=== PATIENT | male | born 1975 | race Caucasian/White ===

== ENCOUNTER 2023-06-30 11:54 | Emergency (ER) | payer OTHER, SELFPAY ==
[2023-06-30 12:01] VITALS: BP 141/82; PULSE 57; RESP 16; TEMP 36.6; O2SAT 97; BMI 30.1
--- NOTE | 2023-06-30 12:36 | CT_ITS ---
Patient: TEDDY LOPEZ Facility:?[facility] Patient ID:?[id number] Site Patient ID:?[id number]. Site :?[id number] Study:?CT-Head WITHOUT-06/30/2023 12:54:55 PM Ordering Physician:?DR. LANIER Final Report: Indication: Left facial and jaw pain, sweats and headache Technique: Volumetric multidetector CT images of the head were obtained without the administration of low osmolar intravenous contrast. Comparison: None available Findings: There is no intra-axial or extra-axial fluid collection. There is no mass effect or midline shift. The ventricles and sulci are normal in size and position for age. The brain parenchyma is grossly preserved in attenuation and walsh-white differentiation. The orbits and their contents are grossly within normal limits. The bony calvarium is grossly intact. The paranasal sinuses are clear. The mastoid air cells are well aerated. Impression: No acute intracranial abnormality. Please note that all CT scans at this facility use dose modulation, iterative reconstruction, and/or weight-based dosing when appropriate to reduce radiation dose to as low as reasonably achievable. Dictated by Demond Hinds MD @ 06/30/2023 12:59:45 PM Signed by:?Demond Hinds MD @06/30/2023 12:59:45 PM (Electronic Signature)
[2023-06-30 13:03] LABS: Lactate Sepsis w/Reflex* 1.2 mmol/L (0.5-1.9)
[2023-06-30 13:07] LABS: Basophils Absolute Auto 0.02 K/uL (0.00-0.30); Basophils Percent Auto 0.3 % (0.0-3.0); Eosinophils Absolute Auto 0.03 K/uL (0.00-0.50); Eosinophils Percent Auto 0.5 % (0.0-7.0); Hematocrit 47.4 % (37.0-53.0); Hemoglobin* 16.5 gm/dL (13.5-17.5); Immature Granulocytes Abs Auto 0.01 K/uL (0.00-0.30); Immature Granulocytes Pct Auto 0.2 %; Lymphocytes Percent Auto 14.8 % (20-44); Mean Corpuscular HGB Conc 35 gm/dL (32-36); Mean Corpuscular Hemoglobin 31 pg (26-34); Mean Corpuscular Volume 89 fL (80-100); Monocytes Percent Auto 8.5 % (0.0-11.0); Neutrophils Percent Auto 75.7 % (42.0-72.0); Platelet Count* 204 K/uL (140-440); RDW Coefficient of Variation % 12.9 % (11.5-15.5); Red Blood Count 5.31 m/uL (4.30-5.90); Slide Review Reflex No; White Blood Count* 6.22 K/uL (4.50-11.00)
[2023-06-30 13:22] LABS: Chloride* 103 mmol/L (96-114); Potassium* 4.1 mmol/L (3.6-5.1); Sodium* 140 mmol/L (135-149)
[2023-06-30 13:25] LABS: Creatinine* 0.8 mg/dL (0.5-1.5); Est. Creatinine Clearance* 115.33; Estimated Glomerular Filt Rate 108 ml/min
[2023-06-30 13:26] LABS: Anion Gap 11 mEq/L (7-15); Blood Urea Nitrogen* 14 mg/dL (5-24); Calcium* 9.7 mg/dL (8.4-10.6); Carbon Dioxide* 26 mmol/L (20-32); Glucose* 105 mg/dL (60-115); Magnesium* 2.2 mg/dL (1.5-2.6)
[2023-06-30 13:31] LABS: C Reactive Protein* < 0.5 mg/dL (0.5-1.0)
--- NOTE | 2023-06-30 14:09 | ED.GENADULT ---
HPI - General Adult General Date Seen: 06/30/23 Chief complaint: Unspecified Complaint, Adult Stated complaint: confusion,body temp irregulation Time Seen by Provider: 06/30/23 12:08 Source: patient and family Mode of arrival: ambulatory Limitations: no limitations History of Present Illness HPI narrative: Patient is a 47-year-old male here with his for evaluation of few different symptoms. For the past several weeks, he says he has had some pain in the left jaw/cheek area. This is been constant but waxes and wanes in intensity. He had attributed it to a tooth, but saw dentist today and says that they did not find any problems. He has not had any swelling, rashes, redness or other changes to the face. He does say that he was having problems for a while with clenching his jaw related to 1 of his psychiatric medications which has since been discontinued. He notes he has not been sleeping well the past few days, which his thought was due to anxiety over new job which he started yesterday. 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 He says his heart was racing yesterday and the hot warehouse, and he thought he may be ?heat stroked a little bit. He has had some night sweats. He has not had unexpected weight loss. He also feels that his temperature regulation is off, he has not documented a fever but feels that he is having significant variability between feeling hot and cold. He also notes that he has been emotionally labile. He does have a history of anxiety, depression, PTSD, question bipolar disorder, was transferred to inpatient psych a year ago, medications adjusted. He says his psychiatrist has left the practice and so he does not have anybody currently managing medications, but does continue to take his current medications and feels that overall his symptoms have been well controlled. Related Data Home Medications Medication Instructions Recorded Confirmed escitalopram oxalate 20 mg tablet 20 mg PO DAILY 06/30/23 06/30/23 lurasidone 20 mg tablet 20 mg PO DAILY 06/30/23 06/30/23 Allergies Allergy/AdvReac Type Severity Reaction Status Date / Time No Known Drug Allergies Allergy Verified 07/06/22 08:57 Review of Systems Status of ROS: Reports: 10 or more systems reviewed and unremarkable except as noted in History and below [facility] Social History Smoking Status: Unknown if ever smoked How often do you have a drink containing alcohol: 4 or more times a week How often do you have six or more drinks on one occasion: Weekly AUDIT-C Alcohol total score: 7 Non-prescribed substance use: marijuana (any form) Exam Narrative: Exam Narrative: Vital signs as noted above. In general, an alert, nontoxic middle-aged male. Head: Normocephalic, atraumatic. Eyes: Pupils are equal reactive. Extraocular movements are full. Conjunctivae are normal. ENT: Mucous membranes are moist. Throat is normal. Dentition is intact, there is no intraoral swelling or tenderness. He does have some tenderness over the TMJ on the left. There is no erythema, no edema, no rash. Neck: Supple without lymphadenopathy. No other masses, no stridor. Heart: Regular rate and rhythm. No murmur or rub. Lungs: Clear bilaterally. No increased work of breathing, crackles or wheezes. Abdomen: Soft and nontender. No organomegaly. Extremities: Well perfused. No edema. No calf tenderness. Pulses intact. Neurologic: Patient is alert and oriented to person and place. Speech is fluent. Face is symmetric. Moves all extremities equally. Affect: Normal. Skin: Warm, mildly diaphoretic. Well perfused. Const: Vital Signs, click to edit/add: Vital Signs - 24 hr 06/30/23 12:01 Temperature 97.9 F Pulse Rate [Pulse Oximeter] 57 L Respiratory Rate 16 Blood Pressure [Ri ght Upper Arm] 141/82 H Pulse Oximetry 97 Oxygen Delivery Me thod Room Air Documenting provider has reviewed patient's vital signs: yes Course Course ED Course: Patient and his were worried about possible infection related to this pain in his cheek. I do not see anything there that looks suspicious for infection. He is afebrile here. He is not tachycardic today, blood pressure is essentially normal. He does appear to have some tenderness over the TMJ, gives a history of jaw clenching and I wonder if that pain is related to some TMJ symptoms. I did check a CBC, this shows a normal white blood cell count at 6.2, minimal left shift with 76% neutrophils. Normal hemoglobin. With regard to his other symptoms, I checked electrolytes, magnesium, CRP, TSH, these were all normal. I also did a CT scan of the head just to look for obvious findings of pituitary mass. This is read as negative by Radiology. Acknowledge that this is not a definitive test as far as this goes, but there are no obvious findings on CT, and I think further evaluation of this if needed could be accomplished as an outpatient. I do not have obvious findings today of any significant hormonal abnormalities. Electrolytes are normal, TSH is 1.16. I do not think his jaw pain is cardiac, it has been constant for a month and has no exertional features. Likewise it is not consistent with trigeminal neuralgia, shingles, or other neuropathic pain. Discussed with him I do not have a clear explanation for all of his symptoms, but workup today is reassuring. I would recommend follow-up with primary care in the next week or 2 for reassessment. Trial of nonsteroidals, ibuprofen 400 mg 3 times daily along with ice for the jaw to see if he improves with this regimen. Return at any time for acute worsening. Vital Signs Vital signs: Initial Vital Signs Temperature 97.9 F 06/30/23 12:01 Temperature Source Oral 06/30/23 12:01 Pulse Rate 57 L 06/30/23 12:01 Respiratory Rate 16 06/30/23 12:01 Blood Pressure 141/82 H 06/30/23 12:01 Blood Pressure Mean 101 06/30/23 12:01 Blood Pressure Position Sitting 06/30/23 12:01 Pulse Oximetry 97 06/30/23 12:01 Oxygen Delivery Method Room Air 06/30/23 12:01 Vital Signs Temperature 97.9 F 06/30/23 12:01 Pulse Rate 57 L 06/30/23 12:01 Respiratory Rate 16 06/30/23 12:01 Blood Pressure 141/82 H 06/30/23 12:01 Pulse Oximetry 97 06/30/23 12:01 Oxygen Delivery Method Room Air 06/30/23 12:01 Temperature 97.9 F 06/30/23 12:01 Pulse Rate 57 L 06/30/23 12:01 Respiratory Rate 16 06/30/23 12:01 Blood Pressure 141/82 H 06/30/23 12:01 Pulse Oximetry 97 06/30/23 12:01 Oxygen Delivery Method Room Air 06/30/23 12:01 Medical Decision Making Lab Data Labs: Lab Results 06/30/23 Range/Units 12:53 WBC 6.22 (4.50-11.00) K/uL RBC 5.31 (4.30-5.90) m/uL Hgb 16.5 (13.5-17.5) gm/dL Hct 47.4 (37.0-53.0) % MCV 89 (80-100) fL MCH 31 (26-34) pg MCHC 35 (32-36) gm/dL RDW Coeff of [place] 12.9 (11.5-15.5) % Plt Count 204 (140-440) K/uL Neut % (Auto) 75.7 H (42.0-72.0) % Lymph % (Auto) 14.8 L (20-44) % [place] % (Auto) 8.5 (0.0-11.0) % Eos % (Auto) 0.5 (0.0-7.0) % Baso % (Auto) 0.3 (0.0-3.0) % Neut # (Auto) 4.70 (1.7-7.0) K/uL Lymph # (Auto) 0.90 (0.90-2.90) K/uL [place] # (Auto) 0.50 (0.00-0.90) K/UL Eos # (Auto) 0.03 (0.00-0.50) K/uL Baso # (Auto) 0.02 (0.00-0.30) K/uL Abs Immat Gran (auto) 0.01 (0.00-0.30) K/uL Imm/Tot Granulo (auto) 0.2 % Sodium 140 (135-149) mmol/L Potassium 4.1 (3.6-5.1) mmol/L Chloride 103 (96-114) mmol/L Carbon Dioxide 26 (20-32) mmol/L Anion Gap 11 (7-15) mEq/L BUN 14 (5-24) mg/dL Creatinine 0.8 (0.5-1.5) mg/dL Estimated Creat Clear 115.33 Estimated GFR 108 ml/min Glucose 105 (60-115) mg/dL Lactate 1.2 (0.5-1.9) mmol/L Calcium 9.7 (8.4-10.6) mg/dL Magnesium 2.2 (1.5-2.6) mg/dL C-Reactive Protein < 0.5 L (0.5-1.0) mg/dL TSH 1.160 (0.270-4.200) uIU/mL Discharge Plan Discharge Clinical Impression: Jaw pain Patient Disposition: Home, Self-Care Condition: Stable Instructions: Temporomandibular Disorder (ED) Additional Instructions: Ibuprofen 400 mg 3 times daily with food for the next 1-2 weeks. Primary care follow-up within that time frame for recheck. Return at any time for worsening. Prescriptions: No Action escitalopram oxalate 20 mg tablet 20 mg PO DAILY lurasidone 20 mg tablet 20 mg PO DAILY Follow Up/Referrals: Provider,Not a Local [Primary Care Provider] - Stand Alone Forms: [employer] Info Instructions
== END 2023-06-30 14:33 | disposition home or self-care (01) ==
PROVIDERS: Emergency Provider Emergency Medicine
DX: R68.84 Jaw pain (principal)
CPT/HCPCS: 36415; 70450; 80048; 83605; 83735; 84443; 85025; 86140; 87040; 99284